=== PATIENT | female | born 1965 | race Asian ===

== ENCOUNTER → 2016-10-17 | Outpatient (CLI) | payer OTHER ==
--- NOTE | 2016-10-17 19:33 | US ---
Thyroid Ultrasound Indication: Follow up nodules. FNA of the left-sided nodule was benign. Technique: Thyroid ultrasound is performed. Comparison: September 09, 2015. Findings: The right thyroid gland measures 4.7 x 1 x 1.4 cm. There is a solid nodule superiorly, me asuring 1.6 x 0.7 x 0.9 cm, previously measuring 1.3 x 0.8 x 0.8 cm, that shows increased vascularity . It is otherwise mostly hypoechoic and solid. The left thyroid gland measures 5.5 x 2.9 x 2.8 cm. A dominant mixed cystic and solid nodule, measur ing 5.2 x 2.5 x 3.2 cm, is significantly increased from the previous 4.4 x 2.7 x 2.3 cm. It is also increased in vascularity. Neither nodules contain calcifications. The thyroid isthmus is homogeneous at 3.7 mm. No surrounding abnormal lymph nodes. Normal shotty bilateral lymph nodes are seen. Vascularity is o therwise normal. Impressions 1. Hypoechoic, solid vascular nodule at the upper right thyroid gland, slightly increased in size fr om the previous ultrasound. 2. Significant increase in size of the left-sided complex heterogeneous and vascular thyroid nodule. The patient is scheduled for surgery for the left-sided nodule. E:robyn
== END ==
LOC: BMCIMAGING 11:31
PROVIDERS: ATTEND Internal Medicine Endocrinology, Diabetes & Metabolism
DX: E04.1 Nontoxic single thyroid nodule (principal)
CPT/HCPCS: 76536-PO

== ENCOUNTER → 2017-02-04 | Outpatient (CLI) | payer OTHER | LOC: BMCIMAGING 07:57 | PROVIDERS: ATTEND Nurse Practitioner Adult Health | DX: Z12.31 Encounter for screening mammogram for malignant neoplasm of breast (principal) | CPT/HCPCS: G0202 ==

== ENCOUNTER → 2017-12-04 | Outpatient (CLI) | payer OTHER | LOC: BMCIMAGING 07:19 | DX: D25.9 Leiomyoma of uterus, unspecified (principal) ==

== ENCOUNTER → 2018-04-29 | Outpatient (CLI) | payer OTHER | LOC: BMCIMAGING 12:01 | PROVIDERS: ATTEND Nurse Practitioner Adult Health | DX: Z12.31 Encounter for screening mammogram for malignant neoplasm of breast (principal) ==

== ENCOUNTER → 2019-02-15 | Outpatient (CLI) | payer OTHER | LOC: BMCIMAGING 09:47 ==